=== PATIENT | female | born 2000 | race African-American/Black ===

== ENCOUNTER 2023-04-02 21:49 | Emergency (ER) | payer OTHER ==
[2023-04-02 21:55] VITALS: BP 106/63; PULSE 88; RESP 16; TEMP 98.1; BMI 32.9
[2023-04-02] MEDS ORDERED: IBUPROFEN 600 MG TABLET (FP) PO ONE ×2 (23:01→23:02)
== END 2023-04-02 23:07 | disposition home or self-care (01) ==
LOC: FER 21:49
DX: S86.911A Strain of unspecified muscle(s) and tendon(s) at lower leg level, right leg, initial encounter (principal); S63.634A Sprain of interphalangeal joint of right ring finger, initial encounter; S00.83XA Contusion of other part of head, initial encounter; M25.561 Pain in right knee; M79.644 Pain in right finger(s); R51.9 Headache, unspecified; Y04.2XXA Assault by strike against or bumped into by another person, initial encounter
CPT/HCPCS: 70150-TC-FY; 73140-TC-RT-FY; 73560-TC-RT-FY; 81025; 99284-25